=== PATIENT | male | born 1980 | race Caucasian/White ===

== ENCOUNTER 2019-07-09 12:47 | Emergency (ER) | payer OTHER ==
[2019-07-09 12:54] VITALS: RESP 18; TEMP 98
--- NOTE | 2019-07-09 13:01 | ED ---
Overdose HPI - General Chief Complaint: Overdose Stated Complaint: Overdose Time Seen by Provider: 07/09/19 12:56 Source: patient, RN notes reviewed Mode of arrival: EMS Limitations: no limitations - History of Present Illness Initial Comments: 38-year-old male presents emergency Department chief complaint of drug overdose. Patient states that he use a couple Xanax states that he snorted a line of heroin. Patient believes this was mixed with something. He states it was very white in nature. Patient states he has not used in several years states that he relapsed. Patient was given 2 mg of Narcan which patient is a symptomatic at this time. Patient offers no other complaints denies being suicidal or homicidal. Review of Systems ROS Statement: Those systems with pertinent positive or pertinent negative responses have been documented in the HPI. ROS Other: All systems not noted in ROS Statement are negative. Past Medical History Past Medical History: No Reported History Past Surgical History: No Surgical Hx Reported Past Drug Use History: Heroin General Exam General appearance: alert, in no apparent distress Head exam: Present: atraumatic, normocephalic, normal inspection Eye exam: Present: normal appearance, PERRL, EOMI. Absent: scleral icterus, conjunctival injection, periorbital swelling ENT exam: Present: normal exam, normal oropharynx, mucous membranes moist Neck exam: Present: normal inspection, full ROM. Absent: tenderness, meningismus, lymphadenopathy Respiratory exam: Present: normal lung sounds bilaterally. Absent: respiratory distress, wheezes, rales, rhonchi, stridor Cardiovascular Exam: Present: normal rhythm, tachycardia, normal heart sounds. Absent: systolic murmur, diastolic murmur, rubs, gallop, clicks Course Vital Signs 07/09/19 12:50 Temperature 98 F Pulse Rate 111 H Respiratory 18 Rate Blood Pressure 135/106 O2 Sat by Pulse 93 L Oximetry Medical Decision Making - Medical Decision Making Patient was observed, patient is in no signs of distress patient is awake alert and orientated will be discharged in stable condition. Disposition Clinical Impression: Accidental drug overdose Disposition: HOME SELF-CARE Condition: Stable Instructions (If sedation given, give patient instructions): Adult Overdose (ED) Additional Instructions: Please return to the Emergency Department if symptoms worsen or any other concerns. Is patient prescribed a controlled substance at d/c from ED?: No Referrals: None,Stated [Primary Care Provider] - 1-2 days Time of Disposition: 13:01
[2019-07-09 13:27] VITALS: BP 135/97; PULSE 97
== END 2019-07-09 13:35 | disposition home or self-care (01) ==
LOC: EC 12:47
DX: T40.1X1A Poisoning by heroin, accidental (unintentional), initial encounter (principal)
CPT/HCPCS: 99284